=== PATIENT | female | born 2000 | race African-American/Black ===

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

== ENCOUNTER 2019-05-12 12:50 | Observation (INO) | payer MEDICAID, OTHER ==
[2019-05-12 13:17] VITALS: BMI 25.0
--- NOTE | 2019-05-12 13:48 | PDOC.FPROB ---
FMR OB H&P: HPI - History of Present Illness Chief Complaint: "felt urge to push" Indentification: 18-yo at 34.1 wga by LMP c/w 11.2 wk sono. History of Present Illness: This patient presented to L&D after taking a shower and feeling the urge to push. States her significant other checked her cervix and felt a head, so they came straight to the hospital. Patient reports feeling trudy-baeza ctx the past 3 weeks but never was checked in the office. She started feeling ctx yesterday every 8-10 min and today every 6-7 min. Denies Vaginal bleeding. Endorses movement. Noticed yesterday morning after having intercourse a clear discharge which did not look like urine or have odor. Also reports some white discharge. Problems in this include: anemia of for which she has not taken iron supplement, anti-josse A antibody positive, and THC usage up until about 1.5 months ago because it helped her nausea/vomiting of . Patient sometimes was taking vitamin, but not daily because of nausea. PMHx: Asthma. YASHIRA: 06/22/2019 Primary Care Physician: Jason: ABA FMR OB H&P: Current - Care : 4 Para: 2011 Gestational age: 34.1 wga Due date: 06/22/2019 Dating Criteria: LMP c/w 11.2 wk sono Total weight gain: + Course/Complications: Anemia THC use Anti-Josse A antibody + (non-hemolytic in ) - OB Labs Blood type: O RH: positive Antibody Screen: positive (Anti-josse A) HIV: negative RPR: negative HepBsAg: negative Rubella: immune Urine drug screen: positive (THC at visits) Gonorrhea: negative Chlamydia: negative Pap Smear: n/a 1 hour gtt: not done 3 hour GTT: not done FMR OB H&P: History - Past Medical History PMH: Asthma Anemia of - OB History OB History: Hx of x2 both at 37 weeks. Hx of 1 SAB at 10 weeks. - MARKET MANAGER History MARKET MANAGER History: No recent STI or STI during this . Sexually active w/ male partner - Social History Social History: Previous marijuana smoker. Denies smoking cigarettes, alcohol, and other drug usage. - Family History Family History: Maternal: significant for HTN. Many family members on mother's side w/ HTN. FMR OB H&P: Medications - Current Home Medications: Medication Instructions Recorded Confirmed Type Ferrous Sulfate [Feosol] 325 mg PO BID-WM #60 tab 02/05/17 Rx Ibuprofen [Motrin] 800 mg PO Q8HR #30 tab 02/05/17 05/12/19 Rx Allergies/Adverse Reactions: Allergies Allergy/AdvReac Type Severity Reaction Status Date / Time No Known Drug Allergies Allergy Verified 05/12/19 13:19 FMR OB H&P: ROS - Review of Systems General: denies: fever/chills, weight/appetite/sleep changes, fatigue Eyes: denies: vision changes Cardiovascular: reports: chest pain (muscular, sharp, intermittent and self- resolve) Respiratory: denies: cough, shortness of breath Gastrointestinal: reports: abdominal pain (w/ ctx). denies: nausea, vomiting, diarrhea, constipation Genitourinary (Female): reports: vaginal discharge, contractions, vaginal pressure. denies: incontinence, dysuria, hematuria, vaginal bleeding Musculoskeletal: reports: arthritis/arthralgias. denies: pain, stiffness Neurologic: denies: weakness, headache Integumentary: denies: itching, rash Hematologic/Lymphatic: denies: prolonged or excessive bleeding Psychological: denies: depression, anxiety FMR OB H&P: Vital Signs - Maternal Vital signs: BP 109/63 HR 77 100% on RA - Heart Tones Baseline: 130 (reactive) Variability: moderate FMR OB H&P: Physical Exam - Physical Exam General: NAD, awake, alert and oriented HEENT: normocephalic and atraumatic Neck: supple Heart: RRR, normal S1/S2, no murmurs/rubs/gallops General: CTAB, no respiratory distress Abdomen: soft, gravid, non-tender, bowel sound present Skin: no rash Lymphatic: no unusual bruising or bleeding Psychiatric: intact recent and remote memory, normal mood and affect - Pelvic Exam Vulva: no masses, no lesions Cervix: no masses, no lesions, no blood (no pooling of fluid, no discharge) SVE: 3/50/0 Membranes: intact Presentation: cephalic, verified by U/S. TERA ~8, MVP ~3.5 FMR OB H&P: A/P Disposition: Monitor for s/sx of labor: Discussion: Date/Time: 05/12/19 1348 18-yo here for contractions and feeling urge to push: - Will monitor 1-2 hours to see if patient is making cervical change - Will rehydrate w/ IV NS bolus 1L - History of at 37 weeks x2 - Unable to perform amnisure since patient had intercourse w/i past 24 hours. - UDS to assess for continued marijuana use in . - GBS, VP3, Gc/Chlamydia collected - 1 dose betamethasone given 12 mg IM for lung maturity. - Continue EFM and toco monitoring. Recheck at 1530 was unchanged, however pt still ctx every 1-2 min. Recheck at 1700 was unchanged. However, pt feels uncomfortable going home. She lives in [place] and does not have a car. We will place in outpatient observation for 24 hours monitoring. This H&P was discussed with Dr. Siegel, and Dr. Coronado who agree with the above documentation and plan. Signature: Rohini Guadarrama MD PGY-1 This is a at 34.1 wks by LMP/11.2 US coming in for evaluation of abdominal pressure and contractions. Cxns 6-7 minutes since last night. Significant hx includes at 37 wks x2. Anti-josse abs. Asthma. THC use during . She affirms movement, denies cxns, ROM, bleeding/ discharge. Denies MADDOX, visual changes, SOB, or swelling. Had intercourse within last 24 hours so no amnisure. TERA 8.3 on bedside sono, no leakage/pooling noted on spec exam. 3/50/0 on initial SVE, no change after 4 hours. Ordered VP3, GC/CT, GBS, Betamethasone x1, fluid bolus. Ordered admission labs in case she would change control manager to labor. Will admit patient because she lives 1 hour away and does not have a care. Monitor overnight. Miki Siegel MD Addendum - Attending - Attending Attestation Date/Time: 05/13/19 0818 I personally evaluated the patient and discussed the management with Dr. [] I agree with the History, Examination, Assessment and Plan documented above with any addition or exceptions noted below. 18-yo at 34.1 wga by LMP c/w 11.2 wk sono presenting with contractions. No cervical change control manager 4 hrs however pt continues to contract painfully. She lives quite far from the hospital and does not have reliable transportation. Will observe overnight given possibility of rapid labor with a baby if she does start to progress. BMZ #1 administered. Will give #2 tomorrow prior to d/c Reassuring FHT Dispo: Anticipate < 2 midnight stay
[2019-05-12] MEDS ORDERED: Sodium Chloride 0.9% 1,000 ML IV SCH (14:15)
[2019-05-12] MEDS ORDERED: Betamet Acet/Betamet Na Ph 30 MG/5 ML VIAL ONE (14:23)
[2019-05-12] MEDS: Betamet Acet/Betamet Na Ph 30 MG/5 ML VIAL IM SCH (14:25)
[2019-05-12] MEDS ORDERED: Ondansetron PF 4 MG/2 ML Vial IVP PRN (17:09)
[2019-05-12] MEDS ORDERED: Docusate 100 MG CAP PO PRN (17:16)
[2019-05-12] MEDS ORDERED: hydrALAZINE 20 MG/ML VIAL SLOW IVP PRN (17:16)
[2019-05-12 19:00] LABS: Hemoglobin 9.6 g/dL (12.0-16.0); Mean Corpuscular HGB CONC 33.1 g/dL (32.0-36.0); Mean Corpuscular Hemoglobin 27.6 pg (25.0-35.0); Mean Corpuscular Volume 83.4 fL (78.0-98.0); Platelet Count 116 thou/uL (130-400); RBC Distribution Width 12.8 % (11.5-14.5); Red Blood Cell (RBC) Count 3.49 mill/uL (4.00-5.20); White Blood Cell (WBC) Count 6.4 thou/uL (4.8-10.8)
[2019-05-12 19:33] LABS: HBSAg Index 0.16 S/CO (0-0.99); Hep B Surf Ag Non-Reactive S/CO (NonReactive); Syphilis Antibody Nonreactive (Nonreactive); Syphilis Antibody Index 0.07 S/CO (<1.00 Non-Reactive)
[2019-05-12 20:42] VITALS: BP 101/60
[2019-05-12 22:21] LABS: Amphetamine Not Detected (NotDetected); Barbiturates Screen Not Detected (NotDetected); Benzodiazepine Screen Not Detected (NotDetected); Cocaine Metabolite Screen Not Detected (NotDetected); Medtox Control Line Valid? VALID (VALID); Medtox Reader # READER 4; Methadone Not Detected (NotDetected); Methamphetamine Not Detected (NotDetected); Opiate Screen Not Detected (NotDetected); Oxycodone Screen Not Detected (NotDetected); Phencyclidine (PCP) Not Detected (NotDetected); THC/Cannabinoid Screen Not Detected (NotDetected); Tricyclic Screen Not Detected (NotDetected)
--- NOTE | 2019-05-13 07:42 | PDOC.FM ---
- Subjective Subjective: Patient states contractions have spaced out overnight. she states she feels them every 10 min, showing irregular on monitor. Patient states she has had some urinary leakage but no leakage of fluid. Denies bleeding. Feels baby moving often. - Objective Vital Signs & Weight: Vital Signs (12 hours) Pulse Resp BP 05/12/19 19:45 90 18 101/60 Weight Weight 61.235 kg Result Diagrams: 05/12/19 18:46 Phys Exam - Physical Examination Constitutional: NAD HEENT: PERRLA, moist MMs Neck: no nodes, full ROM Respiratory: no wheezing, clear to auscultation bilateral Cardiovascular: RRR, no significant murmur Gastrointestinal: soft, non-tender, no distention gravid Musculoskeletal: no edema, pulses present Neurological: non-focal, moves all 4 limbs Psychiatric: normal affect, A&O x 3 Skin: no rash, cap refill <2 seconds Dx/Plan (1) labor Code(s): O60.00 - LABOR WITHOUT DELIVERY, UNSPECIFIED TRIMESTER Status : Acute - Plan Plan: 18-yo # Pre-term labor r/o - cxns spaced out, , no change yesterday - betamethasone 1430 yesterday, will keep patient until 2nd dose today then home as long as no change - History of at 37 weeks x2 - GBS, Gc/Chlamydia collected, pending - VP3 negative # Asthma # Anti-jessica ab # Inconsistent pre-pooja care - missed many appts 2/2 transportation issues Addendum - Attending - Attending Attestation Date/Time: 05/13/19 1329 I personally evaluated the patient and discussed the management with Dr. Siegel I agree with the History, Examination, Assessment and Plan documented above with any addition or exceptions noted below. Pt reports rare nonpainful contractions at this time. Will give second dose of BMZ this afternoon and plan for d/c to home
[2019-05-13] MEDS: Betamet Acet/Betamet Na Ph 30 MG/5 ML VIAL IM SCH (14:03)
[2019-05-14 00:42] LABS: Chlamydia by PCR Not Detected (NotDetected); GC by PCR Not Detected (NotDetected)
--- NOTE | 2019-05-14 08:08 | DIS ---
DATE OF ADMISSION: 05/12/2019 DATE OF DISCHARGE: 05/13/2019 RESIDENT: Miki Siegel MD ADMITTING ATTENDING: Yvette Coronado DO CONSULTS: None. PROCEDURES: None. PRIMARY DIAGNOSIS: labor, ruled out. SECONDARY DIAGNOSES: Asthma, anti-Josse antibodies, inadequate care, social discord. DISCHARGE MEDICATIONS: vitamin. Discontinued medications, none. HISTORY OF PRESENT ILLNESS/HOSPITAL COURSE: This is a 18-year-old, G4, P2-0-1-2, who came in at 34.1 weeks after complaining that when she was in the shower, she felt like she "needed to push." Her boyfriend checked her at home and said he felt the baby's head and so they rushed over to the hospital. On arrival, the patient was checked and found to be 3, 50, and 0 on her SVE. The patient had, had intercourse within the last 24 hours. So, no AmniSure was completed. The patient was kept 4 hours and found to be unchanged. She did receive one dose of betamethasone on the first day. Discussion was had about sending the patient home, but the patient said she did not have a car and it was very difficult for her to get to the hospital. Thus, the patient was kept for 24 hours until she could get her second dose of betamethasone and then was sent home after that. The patient remained unchanged at 3, 50, and 0 at 24 hours. The patient experienced an unremarkable course. When she first came in, she was rebecca every 6 to 7 minutes. By the time of discharge, she said she was feeling them every 10 minutes, but she was irregular on the tocometer. A GBS, VP3, and GC and Chlamydia were taken during her stay. The VP3 was negative. Gonorrhea was negative. Chlamydia was also negative. The GBS is still pending at the time of this dictation, but please check back in the EMR for the results. DISPOSITION: Stable. DISCHARGE INSTRUCTIONS: 1. Location: Home. 2. Diet: Regular. 3. Activity: As tolerated. 4. Followup: Follow up with Clinic in 1 to 2 days. 5. Return precautions were discussed at length with the patient. The plan is to call 911 for an ambulance ride to the hospital should she feel like she is in labor once again. GBS is still pending at the time of this dictation. Job ID: [id number]
== END 2019-05-13 14:25 | disposition home health service (06) ==
LOC: L&D/OP 12:50 → L&D 20:35
PROVIDERS: ADMIT Emergency Medicine; ATTEND Emergency Medicine
DX: O47.03 False labor before 37 completed weeks of gestation, third trimester (principal); O99.013 Anemia complicating pregnancy, third trimester; D64.9 Anemia, unspecified; O36.0190 Maternal care for anti-D [Rh] antibodies, unspecified trimester, not applicable or unspecified; Z3A.34 34 weeks gestation of pregnancy; Z79.899 Other long term (current) drug therapy
CPT/HCPCS: 36415; 80306; 85027; 86780; 86850; 86870; 86900; 86901; 86905; 87077; 87081; 87340; 87480; 87491; 87510; 87591; 87660; 96372; 99285; G0378; J0702

== ENCOUNTER 2019-05-18 22:11 | Day surgery (SDC) | payer OTHER ==
[2019-05-18 22:41] VITALS: BMI 24.8
[2019-05-18] MEDS ORDERED: hydrALAZINE 20 MG/ML VIAL SLOW IVP PRN (22:54)
[2019-05-18] MEDS ORDERED: Butorphanol Tartrate 1 MG/ML VIAL IM SCH ×2 (23:00→23:01)
--- NOTE | 2019-05-18 23:03 | PDOC.FPROB ---
FMR OB H&P: HPI - History of Present Illness Chief Complaint: Painful contractions Indentification: 18yo @ 35.0 by LMP and 11.2wk sono History of Present Illness: Pt presents w/ painful contractions that started later this afternoon. Pt states these have continually gotten worse and have gotten as close as 2-3 minutes apart. Pt also notes some fluid loss today. She felt like there was a gush of fluid while she was sitting watching TV w/ continued trickling while she was laying down on the couch. She denies worsening fluid loss with standing , walking, cough/laughing. She has had to change her underpants 4 times per day due to this. Pt also notes diarrhea for the past 3 days. Denies any other sx including fever, chills, headache, N/V, vision change, or increased swelling. Denies vaginal bleeding but notes some brown discharge when wiping today. Reports good movement. Seen 05/15 for similar sx w/ membranes intact and dc home. Pt was seen 05/12 because she felt the urge to push and significant other checked her thought he felt the head. Pt received betamothasone x2 at that visit. Problems in this include: anemia of for which she has not taken iron supplement, anti-jessica A antibody positive, and THC usage up until about 1.5 months ago because it helped her nausea/vomiting of . Patient sometimes was taking vitamin, but not daily because of nausea. Primary Care Physician: Dr. Gomez - [facility] FMR OB H&P: Current - Care : 4 Para: 2011 Gestational age: 35 Due date: 06/22/2019 Dating Criteria: LMP cw 11.2wk sono - OB Labs Blood type: O RH: positive Antibody Screen: negative HIV: negative RPR: negative HepBsAg: negative Rubella: immune Urine drug screen: positive (THC, states she stopped 1.5 mo ago) Gonorrhea: negative Chlamydia: negative GBS: positive FMR OB H&P: History - Past Medical History PMH: Asthma, anemia - OB History OB History: Hx of x2 both at 37 weeks. Hx of 1 SAB at 10 weeks. 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 Sexually active w/ male partner - Social History Social History: Previous marijuana smoker. Denies smoking cigarettes, alcohol, and other drug usage. - Family History Family History: Maternal: significant for HTN. Many family members on mother's side w/ HTN. FMR OB H&P: Medications - Current Home Medications: Medication Instructions Recorded Confirmed Type No Known 05/15/19 05/18/19 History Allergies/Adverse Reactions: Allergies Allergy/AdvReac Type Severity Reaction Status Date / Time No Known Drug Allergies Allergy Verified 05/18/19 22:38 FMR OB H&P: ROS - Review of Systems General: denies: fever/chills, weight/appetite/sleep changes Eyes: denies: vision changes, double vision ENT: denies: nasal congestion, sore throat Cardiovascular: denies: chest pain, palpitation, edema Respiratory: denies: cough, congestion Gastrointestinal: reports: diarrhea. denies: abdominal pain, nausea, vomiting Genitourinary (Female): reports: incontinence, vaginal discharge (dark brow), vaginal pain, contractions. denies: dysuria, vaginal bleeding Musculoskeletal: denies: tenderness Neurologic: denies: seizures, weakness Integumentary: denies: rash, lesions FMR OB H&P: Vital Signs - Maternal Vital signs: BP: 111/68 HR 67 Temp 98.7 RR 20 - Heart Tones Baseline: 140 Variability: moderate Acceleration: absent Deceleration: absent Category: category 1 [place] contractions every: None identified FMR OB H&P: Physical Exam - Physical Exam General: NAD HEENT: normocephalic and atraumatic, EOMI Neck: FROM, no JVD Heart: RRR, normal S1/S2, no murmurs/rubs/gallops, pulses present, no edema General: CTAB, no respiratory distress, good air movement Abdomen: soft, gravid, non-tender, bowel sound present Musculoskeletal: pulses present, FROM in all four extremities Neurological: sensation to pain,touch and proprioception grossly normal Skin: no rash, capillary refill <2 seconds Lymphatic: no unusual bruising or bleeding, no purpura, no petechia Psychiatric: intact recent and remote memory, good judgement and insight, normal mood and affect - Pelvic Exam Vulva: normal hair distribution, appropriate carlos stage Deviation from normal: Normal thin white discharge Cervix: no masses, no lesions, no blood SVE: 3/50/-1 Membranes: Intact Presentation: Vertex FMR OB H&P: Results - Labs Lab results: Neg amnisure FMR OB H&P: A/P - Problem List (1) Luna Keller' contraction Status: Acute Code(s): O47.9 - FALSE LABOR, UNSPECIFIED (2) Fluid loss Status: Acute Code(s): E86.9 - VOLUME DEPLETION, UNSPECIFIED Disposition: False Labor - Luna Keller Contractions - No contractions seen on toco - 1mg Stadol for pain administered - Encouraged PO fluid intake - Cervical check stable from previous Fluid Loss - Neg amnisure - Sterile spec w/ no pooling or fluid loss w/ valsalva Dispo: Discharge home, return precautions given Discussion: Date/Time: 05/18/19 203 This H&P was discussed with Dr. Vizcarra and Dr. Bennett who agree with the above documentation and plan. Signature: Armando Sanchez D.O. PGY1 Addendum - Attending - Attending Attestation Date/Time: 05/19/19 3357 I personally evaluated the patient and discussed the management with Dr. Sanchez on 05/18/2019 I agree with the History, Examination, Assessment and Plan documented above with any addition or exceptions noted below- 18 yo @35 weeks presents c/o ctx since Saturday worsening in last hour. Denies any VB; ?LOF. (+) FM Afebrile VSS. SSE no pooling; Amnisure negative. SVE 3/50/-2 (unchanged from prior visit) Category 1 FHTs; [place]- irregular ctx q6-10 minutes. A/P: 1) IUP @ 35 weeks - no rupture of membranes; no cervical change. D/c home and follow-up as scheduled at [facility].
[2019-05-18] MEDS ORDERED: Butorphanol Tartrate 1 MG/ML VIAL ONE (23:07)
[2019-05-18 23:09] LABS: Amnisure Internal Control QC ACCEPTABLE (ACCEPTABLE); Amnisure Test No Membranes Rupture (No Rupture)
== END 2019-05-18 23:45 | disposition home or self-care (01) ==
LOC: L&D/OP 22:11
PROVIDERS: ATTEND Family Medicine
DX: O47.03 False labor before 37 completed weeks of gestation, third trimester (principal); O99.013 Anemia complicating pregnancy, third trimester; D64.9 Anemia, unspecified; O99.89 Other specified diseases and conditions complicating pregnancy, childbirth and the puerperium; N89.8 Other specified noninflammatory disorders of vagina; Z3A.35 35 weeks gestation of pregnancy
CPT/HCPCS: 84112; 96372; 99284; J0595

== ENCOUNTER 2019-06-01 06:51 | Day surgery (SDC) | payer OTHER ==
[2019-06-01] MEDS ORDERED: hydrALAZINE 20 MG/ML VIAL SLOW IVP PRN (07:16)
--- NOTE | 2019-06-01 07:55 | PDOC.LDHP ---
Labor and Delivery H&P Chief complaint: contractions HPI: 18 yo at 37.0 by LMP c/w11.2 week US here with complaint of contractions for the past few days. Contractions are painful and are every 5-10 minutes. She was seen on L&D on 05/18 for cxn and SVE at that time was 0/100/-3. She also complains of vaginal discharge, itching, and dysuria. Hx significant for marijuana use during , anemia of (most recent Hb 9.6), and anti jessica antibody. She is GBS positive on swab on 05/12. Current gestational age (weeks): 37 Due date: 06/22/19 Dating criteria: last menstrual period, first trimester ultrasound Grav: 4 Para: 2 Current complications: other (Marijuana use, GBS positive, anti jessica antibody) Current medications: pre-pooja vitamins, iron Allergies/Adverse Reactions: Allergies Allergy/AdvReac Type Severity Reaction Status Date / Time No Known Drug Allergies Allergy Verified 05/18/19 22:38 - Physical Exam Vital signs reviewed and normal: yes General: breathing through contractions Heart: RRR Lungs: nonlabored breathing Abdomen: NTTP Extremeties: no edema FHT: category 1, variability present [place] contractions every: 5 - Vaginal Exam cm dilated: 2 Effacement: 50% Station: -3 - OB Labs Blood type: O RH: positive Antibody Screen: positive HIV: negative RPR: negative HEPSAg: negative GBS: positive Urine drug screen: positive Rubella: immune - Assessment 1. Term at 37.0 2. Vaginal discharge, concern for candidiasis 3. Marijuana use during 4. Anemia of - Plan -: Plan to monitor on L&D, recheck SVE in 2-3 hours. Will admit vs discharge based on cervical change. Intrapartum abx when in labor for GBS status. Will call PN for most recent records. VP3 and UA pending, treat if indicated. Addendum - Attending - Attending Attestation Date/Time: 06/01/19 8076 I personally evaluated the patient and discussed the management with Dr. Godoy. I agree with the History, Examination, Assessment and Plan documented above.
[2019-06-01 08:23] LABS: Bacteria/HPF None Seen HPF (None Seen); Bilirubin Negative (Negative); Blood, Urine Negative (Negative); Clarity Clear (Clear); Glucose, Urine (Dipstick) Normal (Negative); Leukocyte Negative Leu/uL (Negative); Nitrite Negative (Negative); Protein, Urine (Dipstick) Negative (Neg-Trace); RBC/HPF 0-3 HPF (0-3); Squamous Epithelial 0-3 HPF (0-3); Urobilinogen Normal mg/dL (Less than 2); WBC/HPF 0-3 HPF (0-3)
[2019-06-01 09:00] VITALS: BMI 25.2
[2019-06-01] MEDS ORDERED: Butorphanol Tartrate 1 MG/ML VIAL IM ONE (09:45)
[2019-06-01] MEDS ORDERED: Butorphanol Tartrate 1 MG/ML VIAL ONE (09:47)
--- NOTE | 2019-06-01 10:09 | PDOC.LDPN ---
Labor & Delivery Progress Note - Subjective Subjective: painful contractions - Objective Vital signs reviewed and normal: yes General: breathing through contractions Uterine fundus: non tender SVE: 2/50/-3 FHT: category 1 [place] contractions every: 5 - Assessment (1) Term Code(s): Z34.90 - ENCNTR FOR SUPRVSN OF NORMAL , UNSP, UNSP TRIMESTER Current Visit: Yes Status: Acute Plan: other -: After period of observation no cervical change. Cat 1 strip during entire time. Normal labs. Plan to discharge home. Gave return precautions. Follow up at [facility] tomorrow with PCP Addendum - Attending - Attending Attestation Date/Time: 06/01/19 1038 I discussed the management with Dr. Godoy. I agree with the Assessment and Plan documented above.
== END 2019-06-01 10:41 | disposition home health service (06) ==
LOC: L&D/OP 06:51
PROVIDERS: ATTEND Obstetrics & Gynecology
DX: O47.1 False labor at or after 37 completed weeks of gestation (principal); O99.323 Drug use complicating pregnancy, third trimester; F12.90 Cannabis use, unspecified, uncomplicated; O99.013 Anemia complicating pregnancy, third trimester; D64.9 Anemia, unspecified; Z3A.37 37 weeks gestation of pregnancy; Z79.899 Other long term (current) drug therapy
CPT/HCPCS: 81003; 87480; 87510; 87660; J0595

== ENCOUNTER 2019-06-05 03:44 | Day surgery (SDC) | payer OTHER ==
[2019-06-05 04:02] VITALS: BP 116/64; TEMP 98.5; BMI 24.8
[2019-06-05 04:39] LABS: Amnisure Test No Membranes Rupture (No Rupture)
[2019-06-05 04:41] LABS: Amnisure Internal Control QC ACCEPTABLE (ACCEPTABLE)
[2019-06-05] MEDS ORDERED: hydrALAZINE 20 MG/ML VIAL SLOW IVP PRN (05:03)
[2019-06-05] MEDS ORDERED: Butorphanol Tartrate 1 MG/ML VIAL SLOW IVP PRN (05:48)
--- NOTE | 2019-06-05 05:49 | PDOC.FPROB ---
FMR OB H&P: HPI - History of Present Illness Chief Complaint: contractions, VB Indentification: 18 yo at 37.4 wga by 11.2 wk sono c/w LMP History of Present Illness: Pt reports having contractions the past 2 weeks and being in pain. She is tired. Reports contractions started getting closer together around 10 pm last night. States they were every 2 min. Ctx are painful, she feels pressure. Reports leakage of fluid the past 2 weeks. + polyuria. +VB last night, this was new so propelled her to come to L&D. +FM. Diarrhea yesterday. Primary Care Physician: ABA Gomez FMR OB H&P: Current - Care : 4 Para: 2011 Gestational age: 37.4 Due date: 06/22/2019 Dating Criteria: 11.2 wk sono c/w LMP Course/Complications: marijuana use, GBS positive, anti-jessica antibody - OB Labs Blood type: O RH: positive Antibody Screen: positive HIV: negative RPR: negative HepBsAg: negative Rubella: immune GBS: positive FMR OB H&P: History - OB History OB History: 2 at 37 wks. 1 SAB at 10 weeks FMR OB H&P: Medications - Current Home Medications: Medication Instructions Recorded Confirmed Type No Known 05/15/19 06/05/19 History Allergies/Adverse Reactions: Allergies Allergy/AdvReac Type Severity Reaction Status Date / Time No Known Drug Allergies Allergy Verified 06/05/19 03:57 FMR OB H&P: ROS - Review of Systems General: denies: fever/chills, weight/appetite/sleep changes Eyes: denies: vision changes ENT: denies: nasal congestion, rhinorrhea Cardiovascular: reports: chest pain (with contractions). denies: edema Respiratory: denies: cough, shortness of breath Gastrointestinal: reports: abdominal pain Genitourinary (Female): reports: vaginal bleeding, contractions. denies: dysuria, vaginal discharge, vaginal pain Integumentary: denies: itching, rash FMR OB H&P: Vital Signs - Maternal Vital signs: Vital Signs - First Documented Temp Pulse Resp BP 98.5 F 75 18 116/64 06/05/19 03:55 06/05/19 03:55 06/05/19 03:55 06/05/19 03:55 - Heart Tones Baseline: 140 Variability: moderate Acceleration: present Deceleration: absent Category: category 1 [place] contractions every: 3-5 min FMR OB H&P: Physical Exam - Physical Exam HEENT: normocephalic and atraumatic, no scleral icterus, grossly normal vision, grossly normal hearing Neck: trachea midline Heart: RRR, normal S1/S2, no edema General: CTAB, no respiratory distress Abdomen: soft, gravid Psychiatric: intact recent and remote memory - Pelvic Exam SVE: 4/50/-2 [place] score: 6 Membranes: intact Presentation: cephalic Estimated Weight: 7 lbs (by samuel's) FMR OB H&P: Results - Labs Lab results: Laboratory Results - last 24 hr 06/05/19 04:18 Amnio Swab Test No Membranes Rupture FMR OB H&P: A/P Disposition: Observe on L&d Discussion: Date/Time: 06/05/19 0549 18 yo at 37.4 wga by 11.2 wk sono c/w LMP: - Patient has made some change in two hours from 3cm to 4 cm. - Recheck in 2 hours. - Consider admission and augmentation if making change on next check. This H&P was discussed with Dr. Saavedra and Dr. Perry who agree with the above documentation and plan.
[2019-06-05] MEDS ORDERED: Butorphanol Tartrate 1 MG/ML VIAL SLOW IVP SCH (06:00)
[2019-06-05] MEDS: Lactated Ringer's 1,000 ML IV SCH ×2 (06:47→10:12)
[2019-06-05] MEDS ORDERED: Acetaminophen/Codeine 30-300mg Tablet PO PRN ×2 (09:18→15:48)
--- NOTE | 2019-06-05 09:22 | PDOC.LDPN ---
Labor & Delivery Progress Note - Subjective Subjective: painful contractions - Objective Vital signs reviewed and normal: yes General: breathing through contractions Uterine fundus: non tender SVE: 5/75/-3 FHT: category 1 [place] contractions every: 7-10 - Assessment (1) Term Code(s): Z34.90 - ENCNTR FOR SUPRVSN OF NORMAL , UNSP, UNSP TRIMESTER Current Visit: No Status: Acute Plan: continue plan of care -: 1. Term with contractions - patient has made change since last check. Continue to monitor on L&D. Cat 1 strip - Discussed going home to labor until she is in active labor, patient is very unhappy with this option. Agree to obs and check cervical change in 3-4 hours - with attempt pain control with orals at this time. 2. GBS + - PCN when in active labor
--- NOTE | 2019-06-05 12:32 | PDOC.LDPN ---
Labor & Delivery Progress Note - Subjective Subjective: painful contractions - Objective Vital signs reviewed and normal: yes General: NAD, breathing through contractions Uterine fundus: tender to palpation SVE: 12:10 PM by Pulvino Dilation: 5 Effacement: 75% Station: -3 FHT: category 1, variability present [place] contractions every: q3-8 min - Assessment (1) Term Code(s): Z34.90 - ENCNTR FOR SUPRVSN OF NORMAL , UNSP, UNSP TRIMESTER Current Visit: No Status: Acute -: Patient has documented slow interval exchange underwriting consultant the course of the last several hours. She is in latent labor. Given documented slow cervical change, will continue to monitor patient. Patient with regular contractions. Category I strip noted.
--- NOTE | 2019-06-05 16:55 | PDOC.LDPN ---
Labor & Delivery Progress Note - Subjective Subjective: comfortable - Objective Vital signs reviewed and normal: yes General: NAD Uterine fundus: non tender SVE: /-3 FHT: category 1 - Assessment (1) Term Code(s): Z34.90 - ENCNTR FOR SUPRVSN OF NORMAL , UNSP, UNSP TRIMESTER Status: Acute Plan: other (discharge home) -: Patient observed for 12 hours with no appreciable cervical change. Cxn pattern is irregular and 10 minutes apart. Patient is intact. Discussed the fact that she does not meet the definition of active labor and that we could not induce at this time due to risk to baby. Patient understands and agrees with plan to discharge home. Return precautions given. Pt has follow up appointment with [facility] on Saturday Addendum - Attending - Attending Attestation Date/Time: 06/06/19 2076 I personally evaluated the patient and discussed the management with Dr. Godoy I agree with the History, Examination, Assessment and Plan documented above with any addition or exceptions noted below. I have discussed with the patient her findings of no cervical change after 6hrs. We have provided a date for elective iol for her. Pt's biggest concern in the discomfort she has and has had for days and weeks. She is tired of being . Pt is comfortable going home with tylenol 3 #10 to help her get some relief and hopefully sleep. Pt has an appt next sat in [facility]. term labor precautions reviewed.
== END 2019-06-05 16:00 | disposition home or self-care (01) ==
LOC: L&D/OP 03:44
PROVIDERS: ATTEND Obstetrics & Gynecology
DX: O47.1 False labor at or after 37 completed weeks of gestation (principal); O99.89 Other specified diseases and conditions complicating pregnancy, childbirth and the puerperium; N89.8 Other specified noninflammatory disorders of vagina; O99.820 Streptococcus B carrier state complicating pregnancy; Z3A.37 37 weeks gestation of pregnancy
CPT/HCPCS: 84112; 96360; 96361; 96375; 99285; J0595

== ENCOUNTER 2020-03-04 13:16 | Day surgery (SDC) | payer OTHER ==
[2020-03-04 14:27] VITALS: BMI 25.1
[2020-03-04] MEDS ORDERED: hydrALAZINE 20 MG/ML VIAL SLOW IVP PRN (14:31)
[2020-03-04] MEDS ORDERED: Ondansetron ODT 4 MG TAB PO SCH (14:45)
[2020-03-04 15:27] LABS: #Basophils 0.1 thou/uL (0.0-0.2); #Eosinphils 0.1 thou/uL (0.0-0.7); #Lymphocytes 1.9 thou/uL (1.20-3.40); #Monocytes 0.7 thou/uL (0.11-0.59); #Neutrophils 4.4 thou/uL (1.40-6.50); %Basophils 1.2 % (0.0-1.0); %Eosinophils 1.4 % (0.0-10.0); %Lymphocytes 26.4 % (21.0-51.0); %Monocytes 9.6 % (0.0-10.0); %Neutrophils 61.5 % (42.0-75.0); Hemoglobin 10.8 g/dL (12.0-16.0); Mean Corpuscular HGB CONC 32.8 g/dL (32.0-36.0); Mean Corpuscular Hemoglobin 28.4 pg (27.0-31.0); Mean Corpuscular Volume 86.5 fL (78.0-98.0); Mean Platelet Volume 13.1 fL (7.4-10.4); Platelet Count 137 thou/uL (130-400); RBC Distribution Width 12.4 % (11.5-14.5); Red Blood Cell (RBC) Count 3.79 mill/uL (4.20-5.40); White Blood Cell (WBC) Count 7.1 thou/uL (4.8-10.8)
[2020-03-04 15:36] LABS: ALT (SGPT) 10 U/L (8-55); AST (SGOT) 11 U/L (5-34); Albumin 3.4 g/dL (3.5-5.0); Alkaline Phosphatase 90 U/L (40-110); Anion Gap 10 mmol/L (10-20); BUN (Urea Nitrogen) 5 mg/dL (7.0-18.7); Bilirubin, Total 0.2 mg/dL (0.2-1.2); Calc. Creatinine Clearance 137 mL/min (70-130); Calcium 7.9 mg/dL (7.8-10.44); Carbon Dioxide 21 mmol/L (22-29); Chloride 107 mmol/L (98-107); Estimated GFR-MDRD Greater than 90; Globulin 3.4 g/dL (2.4-3.5); Glucose 89 mg/dL (70-105); Magnesium 1.9 mg/dL (1.6-2.6); Protein, Total 6.8 g/dL (6.0-8.3); Sodium 134 mmol/L (136-145)
[2020-03-04 15:39] LABS: Large Platelets SLIGHT; MDiff Complete? YES; Ovalocytes SLIGHT = 2-5 cells (100X) (0-1/hpf); Platelet Morphology Comment Appears Adequate; Polychromasia SLIGHT = 2-3 cells (100X) (0-2/hpf)
--- NOTE | 2020-03-04 16:35 | PDOC.FPROB ---
FMR OB H&P: HPI - History of Present Illness Chief Complaint: N/V/D Indentification: 19 year old at 28.4 wks History of Present Illness: 19 year old at 28.4 wks presents with a five day history of N/V/D. Patient states that she has been unable to keep anything down. As soon as she tries to eat, she states she vomits or has episodes of diarrhea. Patient reports upwards of 10 episodes of nonbloody diarrhea a day. NBNB emesis with attempts at eating. She states she was in [facility] on Saturday and was told to take unisom which was not effective. She denies cough, congestion, fever, chills, chest pain, or shortness of breath. She has not bee around sick contacts. Patient does not recall eating any chicken or hamburgers that may have been undercooked. She denies syncope, significant weakness. Primary Care Physician: [facility] FMR OB H&P: Current - Care : 5 Para: 3013 Gestational age: 28.4 wks Due date: 05/23/2020 FMR OB H&P: History - Past Medical History PMH: Denies - OB History OB History: x3 - Surgical History Sx History: Denies - Social History Social History: Denies tobacco, alcohol, or drug use FMR OB H&P: Medications - Current Home Medications: Medication Instructions Recorded Confirmed Type Ondansetron [Zofran ODT] 4 mg PO Q6HR #10 tab 03/04/20 Rx Allergies/Adverse Reactions: Allergies Allergy/AdvReac Type Severity Reaction Status Date / Time No Known Drug Allergies Allergy Verified 06/05/19 03:57 FMR OB H&P: ROS - Review of Systems General: reports: weight/appetite/sleep changes (decreased appetite). denies: fever/chills Eyes: denies: vision changes, scotomas ENT: denies: nasal congestion, rhinorrhea, sore throat Cardiovascular: denies: chest pain, palpitation, edema Respiratory: denies: cough, congestion, shortness of breath Gastrointestinal: reports: nausea, vomiting, diarrhea. denies: abdominal pain, constipation Genitourinary (Female): denies: dysuria, vaginal discharge, vaginal pain, contractions Musculoskeletal: denies: pain, stiffness, tenderness Neurologic: denies: numbness, syncope, seizures Integumentary: denies: itching, rash Psychological: denies: depression, anxiety FMR OB H&P: Vital Signs - Maternal Vital signs: BP 100/62 Pulse 69 Afebrile - Heart Tones Baseline: 140 Variability: moderate Acceleration: present Tavernier contractions every: uterine irritability FMR OB H&P: Physical Exam - Physical Exam General: NAD, awake, alert and oriented HEENT: MMM, grossly normal vision, grossly normal hearing Heart: RRR, no murmurs/rubs/gallops, pulses present General: CTAB, no respiratory distress, no wheezing Abdomen: soft, gravid, non-tender Musculoskeletal: pulses present, FROM in all four extremities Neurological: no tremor, no focal deficit Skin: no rash, capillary refill <2 seconds Lymphatic: no unusual bruising or bleeding, no purpura Psychiatric: intact recent and remote memory, good judgement and insight, normal mood and affect FMR OB H&P: Results - Labs Lab results: Laboratory Results - last 24 hr 03/04/20 03/04/20 14:57 14:57 WBC 7.1 RBC 3.79 L Hgb 10.8 L Hct 32.8 L MCV 86.5 MCH 28.4 MCHC 32.8 RDW 12.4 Plt Count 137 MPV 13.1 H Neutrophils % 61.5 Neutrophils % (Manual) Not Reportable Lymphocytes % 26.4 Monocytes % 9.6 Eosinophils % 1.4 Basophils % 1.2 H Neutrophils # 4.4 Lymphocytes # 1.9 Monocytes # 0.7 H Eosinophils # 0.1 Basophils # 0.1 Large Platelets SLIGHT Plt Morphology Comment Appears Adequate Polychromasia SLIGHT = 2-3 cells Ovalocytes SLIGHT = 2-5 cells Sodium 134 L Potassium 4.0 Chloride 107 Carbon Dioxide 21 L Anion Gap 10 BUN 5 L Creatinine 0.62 Estimated GFR (MDRD) Greater than 90 Glucose 89 Calcium 7.9 Magnesium 1.9 Total Bilirubin 0.2 AST 11 ALT 10 Alkaline Phosphatase 90 Serum Total Protein 6.8 Albumin 3.4 L Globulin 3.4 Albumin/Globulin Ratio 1.0 L FMR OB H&P: A/P - Problem List (1) Intrauterine Current Visit: Yes Status: Acute Code(s): Z34.90 - ENCNTR FOR SUPRVSN OF NORMAL , UNSP, UNSP TRIMESTER (2) Vomiting and diarrhea Current Visit: Yes Status: Acute Code(s): R11.10 - VOMITING, UNSPECIFIED; R19.7 - DIARRHEA, UNSPECIFIED Disposition: 19 y/o at 28.4 wks sIUP - at 28.4 wks - No complications during this - Short interval N/V/D, likely 2/2 gastroenteritis - Nonbloody - Vital signs do not suggest significant dehydration; pulse and BP WNL - Patient given one dose of zofran; tolerated eating cheetos, a sandwich, and an apple - BUN/Cr not suggestive of dehydration (BUN/Cr not >20) - Electrolytes WNL - Patient unable to provide stool studies here; sample and lab slip container given to patient, she was advised to bring back to [facility] lab when collected - Zofran sent to pharmacy - Encourage PO hydration Dispo: Discharge home. Patient well appearing. No evidence of significant dehydration requiring IVF. PO challenge passed. Patient to collect stool studies and bring back to lab. Labs WNL. Return precautions provided. Discussion: Date/Time: 03/04/20 7185 This H&P was discussed with Dr. Mora who agrees with the above documentation and plan. Signature: Meera Gomez, PGY-3 Addendum - Attending - Attending Attestation Date/Time: 03/05/20 1245 I personally evaluated the patient and discussed the management with Dr. Gomez yesterday. I agree with the History, Examination, Assessment and Plan documented above with any addition or exceptions noted below.
== END 2020-03-04 16:40 | disposition home or self-care (01) ==
LOC: ERS 13:16 → SDC 13:16 → L&D/OP 13:16 → EDSTATUS 13:29 → L&D/OP 16:40
PROVIDERS: ATTEND Family Medicine
DX: O21.2 Late vomiting of pregnancy (principal); O99.613 Diseases of the digestive system complicating pregnancy, third trimester; R19.7 Diarrhea, unspecified; Z3A.28 28 weeks gestation of pregnancy; Z79.899 Other long term (current) drug therapy
CPT/HCPCS: 36415; 80053; 83735; 85025; 99283

== ENCOUNTER 2020-04-06 12:04 | Emergency (ER) | payer OTHER ==
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
== END 2020-04-06 14:28 | disposition home or self-care (01) ==
LOC: ERS 12:04
DX: O9A.213 Injury, poisoning and certain other consequences of external causes complicating pregnancy, third trimester (principal); S16.1XXA Strain of muscle, fascia and tendon at neck level, initial encounter; O99.513 Diseases of the respiratory system complicating pregnancy, third trimester; J45.909 Unspecified asthma, uncomplicated; O99.333 Smoking (tobacco) complicating pregnancy, third trimester; F17.290 Nicotine dependence, other tobacco product, uncomplicated; O99.89 Other specified diseases and conditions complicating pregnancy, childbirth and the puerperium; M54.5 Low back pain; V43.52XA Car driver injured in collision with other type car in traffic accident, initial encounter
CPT/HCPCS: 72125

== ENCOUNTER 2020-11-25 10:33 | Emergency (ER) | payer OTHER, SELFPAY | END 2020-11-25 13:15 | disposition home or self-care (01) | LOC: ERS 10:33 | DX: A64 Unspecified sexually transmitted disease (principal); J45.909 Unspecified asthma, uncomplicated; F17.210 Nicotine dependence, cigarettes, uncomplicated | CPT/HCPCS: 99281 ==

== ENCOUNTER 2021-10-24 20:59 | Emergency (ER) | payer SELFPAY ==
[2021-10-24 22:00] LABS: Hemoglobin 11.6 g/dL (12.0-16.0); Mean Corpuscular HGB CONC 32.3 g/dL (32.0-36.0); Mean Corpuscular Hemoglobin 28.3 pg (27.0-31.0); Mean Corpuscular Volume 87.7 fL (78.0-98.0); RBC Distribution Width 13.2 % (11.5-14.5); White Blood Cell (WBC) Count 6.5 thou/uL (4.8-10.8)
[2021-10-24 22:04] LABS: ALT (SGPT) 50 U/L (8-55); AST (SGOT) 36 U/L (5-34); Albumin 4.1 g/dL (3.5-5.0); Alkaline Phosphatase 74 U/L (40-110); Anion Gap 15 mmol/L (10-20); BUN (Urea Nitrogen) 9 mg/dL (7.0-18.7); Bilirubin, Total 0.3 mg/dL (0.2-1.2); Calc. Creatinine Clearance 0 mL/min (70-130); Calcium 8.6 mg/dL (7.8-10.44); Carbon Dioxide 20 mmol/L (22-29); Chloride 109 mmol/L (98-107); Globulin 2.8 g/dL (2.4-3.5); Glucose 106 mg/dL (70-105); Potassium 3.7 mmol/L (3.5-5.1); Protein, Total 6.9 g/dL (6.0-8.3); Sodium 140 mmol/L (136-145)
[2021-10-24 22:28] LABS: Band 3 % (5-11); Eosinophils 4 % (0-10); Lymphocytes 61 % (21-51); MDiff Complete? YES; Mean Platelet Volume 11.9 fL (7.4-10.4); Monocytes 5 % (0-10); Neutrophil 27 % (42-75); Platelet Count 181 thou/uL (130-400)
[2021-10-24] MEDS ORDERED: Ketorolac Tromethamine 30 MG/ML VIAL ONE (23:30)
== END 2021-10-25 00:55 | disposition home or self-care (01) ==
LOC: ERS 20:59
DX: R07.89 Other chest pain (principal); F17.210 Nicotine dependence, cigarettes, uncomplicated; D64.9 Anemia, unspecified
CPT/HCPCS: 36415; 71045; 80053; 84484; 85025; 93005; 96374; J1885

== ENCOUNTER 2022-03-18 08:34 | Emergency (ER) | payer SELFPAY ==
[2022-03-18 09:44] LABS: BHCG - Serum Negative (NEGATIVE); Pregs Control Background? CLEAR/WHITE (CLR/WHITE); Pregs Control Bar Appear? YES (CONTROL BAR)
[2022-03-18 09:45] LABS: ALT (SGPT) 30 U/L (8-55); AST (SGOT) 21 U/L (5-34); Albumin 4.1 g/dL (3.5-5.0); Alkaline Phosphatase 61 U/L (40-110); Anion Gap 16 mmol/L (10-20); BUN (Urea Nitrogen) 9 mg/dL (7.0-18.7); Bilirubin, Total 0.7 mg/dL (0.2-1.2); Calc. Creatinine Clearance 0 mL/min (70-130); Carbon Dioxide 17 mmol/L (22-29); Chloride 109 mmol/L (98-107); Globulin 3.2 g/dL (2.4-3.5); Glucose 104 mg/dL (70-105); Lipase 24 U/L (8-78); Potassium 3.7 mmol/L (3.5-5.1); Protein, Total 7.3 g/dL (6.0-8.3); Sodium 138 mmol/L (136-145)
[2022-03-18 09:48] LABS: #Eosinphils 0.1 thou/uL (0.0-0.7); #Lymphocytes 0.7 thou/uL (1.20-3.40); #Monocytes 0.5 thou/uL (0.11-0.59); #Neutrophils 3.4 thou/uL (1.40-6.50); %Basophils 0.8 % (0.0-1.0); %Eosinophils 2.2 % (0.0-10.0); %Lymphocytes 15.7 % (21.0-51.0); %Neutrophils 71.4 % (42.0-75.0); Band 3 % (5-11); Eosinophils 3 % (0-10); Hemoglobin 12.8 g/dL (12.0-16.0); Large Platelets SLIGHT; Lymphocytes 18 % (21-51); MDiff Complete? YES; Mean Corpuscular Hemoglobin 28.7 pg (27.0-31.0); Mean Corpuscular Volume 89.7 fL (78.0-98.0); Mean Platelet Volume 12.7 fL (7.4-10.4); Monocytes 10 % (0-10); Neutrophil 66 % (42-75); Platelet Count 153 thou/uL (130-400); Platelet Morphology Comment Appears Adequate; RBC Distribution Width 12.6 % (11.5-14.5); RBC Morphology Normal; Red Blood Cell (RBC) Count 4.48 mill/uL (4.20-5.40); White Blood Cell (WBC) Count 4.7 thou/uL (4.8-10.8)
[2022-03-18] MEDS ORDERED: Ketorolac Tromethamine 30 MG/ML VIAL ONE (09:51)
== END 2022-03-18 11:39 | disposition home or self-care (01) ==
LOC: ERS 08:34
DX: R07.89 Other chest pain (principal); J45.909 Unspecified asthma, uncomplicated; D64.9 Anemia, unspecified; F17.290 Nicotine dependence, other tobacco product, uncomplicated
CPT/HCPCS: 36415; 71045; 80053; 83690; 84484; 84703; 85025; 93005; 94760; 96372; J1885

== ENCOUNTER 2022-07-10 07:29 | Emergency (ER) | payer SELFPAY ==
[2022-07-10] MEDS ORDERED: Ketorolac Tromethamine 30 MG/ML VIAL ONE (08:30)
== END 2022-07-10 09:55 | disposition home or self-care (01) ==
LOC: ERS 07:29
DX: J10.1 Influenza due to other identified influenza virus with other respiratory manifestations (principal); F17.290 Nicotine dependence, other tobacco product, uncomplicated; Z20.822 Contact with and (suspected) exposure to COVID-19
CPT/HCPCS: 71045; 87081; 87430; 87804; 93005; 96372; J1885; U0003; U0005

== ENCOUNTER 2022-11-22 07:33 | Emergency (ER) | payer SELFPAY ==
[2022-11-22 08:16] LABS: Hemoglobin 13.3 g/dL (12.0-16.0); Mean Corpuscular HGB CONC 33.3 g/dL (32.0-36.0); Mean Corpuscular Hemoglobin 29.8 pg (27.0-31.0); Mean Corpuscular Volume 89.5 fl (78.0-98.0); Platelet Count 144 10x3/uL (130-400); RBC Distribution Width 12.1 % (11.5-14.5); Red Blood Cell (RBC) Count 4.45 mill/uL (4.20-5.40); White Blood Cell (WBC) Count 4.9 10x3/uL (4.8-10.8)
[2022-11-22 08:39] LABS: ALT (SGPT) 40 U/L (8-55); AST (SGOT) 28 U/L (5-34); Albumin 4.4 g/dL (3.5-5.0); Alkaline Phosphatase 50 U/L (40-110); Anion Gap 15 mmol/L (10-20); BUN (Urea Nitrogen) 9 mg/dL (7.0-18.7); Bilirubin, Total 0.8 mg/dL (0.2-1.2); Calc. Creatinine Clearance 0 mL/min (70-130); Calcium 9.4 mg/dL (7.8-10.44); Carbon Dioxide 16 mmol/L (22-29); Chloride 111 mmol/L (98-107); Estimated GFR 105; Globulin 2.8 g/dL (2.4-3.5); Glucose 90 mg/dL (70-105); Potassium 3.4 mmol/L (3.5-5.1); Protein, Total 7.2 g/dL (6.0-8.3); Sodium 139 mmol/L (136-145)
[2022-11-22 09:05] LABS: Band 2 % (5-11); Eosinophils 1 % (0-10); Lymphocytes 29 % (21-51); MDiff Complete? YES; Monocytes 15 % (0-10); Neutrophil 51 % (42-75); Ovalocytes MODERATE= 6-15 cells (100X) (0-1/hpf); Platelet Morphology Comment Appears Adequate; Polychromasia SLIGHT = 2-3 cells (100X) (0-2/hpf); Reactive Lymphocytes 2 % (0-10)
== END 2022-11-22 09:11 | disposition home or self-care (01) ==
LOC: ERS 07:33
DX: B34.9 Viral infection, unspecified (principal); Z20.822 Contact with and (suspected) exposure to COVID-19; F17.290 Nicotine dependence, other tobacco product, uncomplicated
CPT/HCPCS: 36415; 71045; 80053; 85025; 87804; 93005; U0003; U0005

== ENCOUNTER 2024-08-25 07:22 | Emergency (ER) | payer MEDICAID, OTHER, SELFPAY ==
[2024-08-25] MEDS ORDERED: Ketorolac Tromethamine 30 MG (1 mL) VIAL ONE ×2 (08:24→10:24)
[2024-08-25] MEDS ORDERED: Ondansetron PF 4 MG/2 ML Vial ONE (08:24)
[2024-08-25 08:36] LABS: Hematocrit 39.4 % (36.0-47.0); Hemoglobin 13.1 g/dL (12.0-16.0); Mean Corpuscular HGB CONC 33.2 g/dL (32.0-36.0); Mean Corpuscular Hemoglobin 29.2 pg (27.0-31.0); Mean Corpuscular Volume 87.9 fL (78.0-98.0); Mean Platelet Volume 11.7 fL (7.4-10.4); Platelet Count 199 10x3/uL (130-400); RBC Distribution Width 12.2 % (11.5-14.5); Red Blood Cell (RBC) Count 4.48 mill/uL (4.20-5.40)
[2024-08-25 08:50] LABS: BHCG - Serum Negative (NEGATIVE); Pregs Control Background? CLEAR/WHITE (CLR/WHITE); Pregs Control Bar Appear? YES (CONTROL BAR)
[2024-08-25 08:57] LABS: ALT (SGPT) 25 U/L (8-55); AST (SGOT) 18 U/L (5-34); Albumin 3.9 g/dL (3.5-5.0); Alkaline Phosphatase 43 U/L (40-110); Anion Gap 12 mmol/L (10-20); BUN (Urea Nitrogen) 9 mg/dL (7.0-18.7); Bilirubin, Total 0.5 mg/dL (0.2-1.2); Calc. Creatinine Clearance 0 mL/min (70-130); Calcium 8.7 mg/dL (7.8-10.44); Carbon Dioxide 21 mmol/L (22-29); Chloride 105 mmol/L (98-107); Estimated GFR 110; Globulin 3.3 g/dL (2.4-3.5); Glucose 105 mg/dL (70-105); Lipase 11 U/L (8-78); Potassium 3.8 mmol/L (3.5-5.1); Protein, Total 7.2 g/dL (6.0-8.3); Sodium 134 mmol/L (136-145)
[2024-08-25 10:15] LABS: Burr Cells SLIGHT = 2-5 cells HPF (0-1); Elliptocytes SLIGHT = 2-5 cells HPF (0-1); Lymphocytes 21 % (21-51); Monocytes 7 % (0-10); Neutrophil 69 % (42-75); Platelet Adequacy Comment Platelets Normal; Polychromasia SLIGHT = 2-3 cells HPF (0-2); Reactive Lymphocytes 3 % (0-10)
[2024-08-25 10:49] LABS: Bacteria/HPF None Seen HPF (None Seen); Bilirubin Negative (Negative); Blood, Urine Negative (Negative); CAUTI Indications for Culture Pelvic or flank pain; Clarity Clear (Clear); Glucose, Urine (Dipstick) Normal (Negative); Ketone, Urine Negative (Negative); Leukocyte Negative Leu/uL (Negative); Nitrite Negative (Negative); Protein, Urine (Dipstick) Negative (Neg-Trace); RBC/HPF None Seen HPF (0-3); Urobilinogen Normal mg/dL (Less than 2); WBC/HPF None Seen HPF (0-3)
[2024-08-25 10:52] LABS: Specific Gravity, Urine Greater than 1.060 (1.002-1.036)
[2024-08-25 10:53] LABS: Urine Culture Reflex No No
== END 2024-08-25 11:09 | disposition home or self-care (01) ==
LOC: ERS 07:22
DX: N30.90 Cystitis, unspecified without hematuria (principal); F17.290 Nicotine dependence, other tobacco product, uncomplicated
CPT/HCPCS: 36415; 74177; 80053; 81001; 83690; 84703; 85025; 96374; 96375; 96376; J1885; J2405

== ENCOUNTER 2025-04-24 05:18 | Emergency (ER) | payer OTHER, SELFPAY ==
[2025-04-24 05:55] LABS: #Basophils 0.03 10x3/uL (0.0-0.2); #Eosinophils 0.03 10x3/uL (0.0-0.7); #Monocytes 0.38 10x3/uL (0.11-0.59); #Neutrophils 2.96 10x3/uL (1.40-6.50); %Basophils 0.5 % (0.0-1.0); %Eosinophils 0.5 % (0.0-10.0); %Lymphocytes 38.4 % (21.0-51.0); %Monocytes 6.8 % (0.0-10.0); %Neutrophils 53.4 % (42.0-75.0); Hematocrit 37.3 % (36.0-47.0); Hemoglobin 12.6 g/dL (12.0-16.0); Mean Corpuscular Hemoglobin 28.9 pg (27.0-31.0); Mean Corpuscular Volume 85.6 fL (78.0-98.0); Platelet Count 222 10x3/uL (130-400); Red Blood Cell (RBC) Count 4.36 mill/uL (4.20-5.40); White Blood Cell (WBC) Count 5.55 10x3/uL (4.8-10.8)
[2025-04-24 06:05] LABS: BHCG - Serum Negative (NEGATIVE); Pregs Control Background? CLEAR/WHITE (CLR/WHITE); Pregs Control Bar Appear? YES (CONTROL BAR)
[2025-04-24 06:11] LABS: ALT (SGPT) 22 U/L (Less than 34); AST (SGOT) 34 U/L (11-34); Albumin 4.3 g/dL (3.1-4.5); Alkaline Phosphatase 47 U/L (40-110); Anion Gap 18 mmol/L (10-20); BUN (Urea Nitrogen) 10 mg/dL (7.0-18.7); Bilirubin, Total 0.6 mg/dL (0.3-1.2); Calc. Creatinine Clearance 0 mL/min (70-130); Calcium 9.2 mg/dL (7.8-10.44); Carbon Dioxide 16 mmol/L (22-29); Chloride 110 mmol/L (98-107); Globulin 3.4 g/dL (2.4-3.5); Glucose 100 mg/dL (70-105); Potassium 3.8 mmol/L (3.5-5.1); Sodium 140 mmol/L (136-145)
[2025-04-24 06:20] LABS: Acetaminophen Less than 10 mcg/mL (Less than 10); Salicylate Less than 8.0 mg/dL (Less than 8.0)
== END 2025-04-24 06:13 | disposition home or self-care (01) ==
LOC: ERS 05:18
DX: Z76.5 Malingerer [conscious simulation] (principal); F17.290 Nicotine dependence, other tobacco product, uncomplicated
CPT/HCPCS: 80053; 80307; 84702; 84703; 85025; 99283